=== PATIENT | female | born 1975 | race Caucasian/White ===

== ENCOUNTER 2016-08-21 10:45 | Emergency (ER) | payer MEDICARE, MEDICAID ==
[~2016-08-21] VITALS: Ht 165.1 cm; Wt 97.1 kg
[~2016-08-21 10:45] MED LIST: CLONAZAPAM PO; FLUO10CA13 PO; LEVE250T28 PO; OMEP-110 PO; fentanyl patch TD
[2016-08-21] MEDS ORDERED: ONDANSETRON 2MG/ML, 2ML IVPush ONE (11:30)
[2016-08-21] MEDS ORDERED: MAALOX/HYOSCYAMINE/LIDOCAINE 45 ML BOTTLE PO ONE (11:30)
[2016-08-21] MEDS ORDERED: PANTOPRAZOLE 40 MG IV IVPush ONE (11:30)
[2016-08-21] MEDS ORDERED: SODIUM CHLORIDE FLUSH 10ML SYR IVF ONE (11:30)
[2016-08-21] MEDS ORDERED: MAALOX/HYOSCYAMINE/LIDOCAINE 45 ML BOTTLE ONE (11:33)
[2016-08-21] MEDS ORDERED: PANTOPRAZOLE 40 MG IV ONE (11:33)
[2016-08-21] MEDS ORDERED: HYDROmorphone 1 MG/ML, 1ML ONE ×3 (11:33→14:38)
[2016-08-21] MEDS ORDERED: ONDANSETRON 2MG/ML, 2ML ONE (11:33)
[2016-08-21] MEDS: HYDROmorphone 2 MG/ML, 1ML IVPush PRN ×2 (11:37→13:20)
[2016-08-21 11:59] LABS: HEMOGLOBIN 14.7 g/dL (11.7-16.4)
[2016-08-21] MEDS ORDERED: SODIUM CHLORIDE 0.9% 1,000ML IVBOLUS ONE (12:00)
[2016-08-21 12:12] LABS: ASPARTATE AMINO TRANSFERASE 10 U/L (15-37); BLOOD UREA NITROGEN 17 mg/dL (7-18)
[2016-08-21] MEDS ORDERED: HYDROmorphone 2 MG/ML, 1ML IVPush PRN (14:30)
[2016-08-21 15:09] VITALS: BP 99/65
[2016-08-21] MEDS ORDERED: OMNIPAQUE 350 MG/ML, 100ML BOTTLE ONE (16:33)
== END 2016-08-21 15:16 | disposition home or self-care (01) ==
LOC: ED 13:00
DX: K92.2 Gastrointestinal hemorrhage, unspecified (principal); R10.13 Epigastric pain; R11.2 Nausea with vomiting, unspecified; G40.909 Epilepsy, unspecified, not intractable, without status epilepticus; Z88.0 Allergy status to penicillin
CPT/HCPCS: 36415; 74177; 80053; 83690; 85025; 85610; 85730; 86677; 96361; 96374; 96375; 96376; 99285; C9113; J1170; J2405; J7030; Q9967

== ENCOUNTER 2020-07-16 10:59 | Emergency (ER) | payer MEDICAID, MEDICARE ==
[~2020-07-16] VITALS: Ht 165.1 cm; Wt 103.1 kg
[~2020-07-16 10:59] MED LIST changes: +LITH150C PO
[2020-07-16] MEDS ORDERED: ASPIRIN 81 MG TABLET CHEW PO ONE (11:30)
[2020-07-16 12:01] LABS: ALANINE AMINOTRANSFERASE 22 U/L (12-78); ALBUMIN 3.7 g/dL (3.4-5.0); ANION GAP 8 mmol/L (5-15); BASOPHILS % (AUTO) 1 % (0-1); CALCIUM 8.9 mg/dL (8.5-10.1); CHLORIDE 110 mmol/L (98-107); EOSINOPHILS % (AUTO) 5 % (1-7); LYMPHOCYTES % (AUTO) 29 % (22-44); MEAN CORPUSCULAR HEMOGLOBIN 31.4 pg (27.0-34.8); MEAN PLATELET VOLUME 6.7 fL (7.4-10.4); MONOCYTES % (AUTO) 9 % (2-9); NEUTROPHILS % (AUTO) 56 % (42-75); PLATELET COUNT 291 x10^3/uL (130-400); RED BLOOD COUNT 4.48 x10^6/uL (3.82-5.3); RED CELL DISTRIBUTION WIDTH 13.2 % (9.6-15.2)
[2020-07-16 12:03] LABS: MD NO
[2020-07-16 12:05] LABS: ALKALINE PHOSPHATASE 68 U/L (45-117); BILIRUBIN,TOTAL 0.3 mg/dL (0.2-1.0); TOTAL PROTEIN 7.3 g/dL (6.4-8.2); TROPONIN I < 0.015 ng/mL (0.000-0.045)
[2020-07-16] MEDS ORDERED: ASPIRIN 81 MG TABLET CHEW ONE (12:11)
--- NOTE | 2020-07-16 12:50 | NUR ---
PT AMBULATES BACK TO ROOM AT THIS TIME. PER PT SHE HAS HAD LEFT-SIDED CHEST PAIN SINCE 0600. DENIES PAIN RADIATING, DENIES SOB, BUT "HURTS TO BREATHE IN DEEPLY." RIGHT HAND IS TINGLING, PATIENT DENIES N/V. PT RESTING IN [facility], MONITORING IN PLACE, NADN AT THIS TIME, ELIZABET. AT BEDSIDE.
[2020-07-16] MEDS ORDERED: SODIUM CHLORIDE 0.9% 1,000ML IVBOLUS ONE (13:00)
[2020-07-16] MEDS ORDERED: SODIUM CHLORIDE FLUSH 10ML SYR IVF ONE (13:00)
[2020-07-16] MEDS ORDERED: KETOROLAC 30 MG/1 ML ONE (13:59)
[2020-07-16] MEDS ORDERED: KETOROLAC 30 MG/1 ML IVPush ONE (14:00)
--- NOTE | 2020-07-16 14:20 | NUR ---
MD CHEN AT TO UPDATE PT ON POC.
[2020-07-16 15:13] VITALS: BP 119/74
--- NOTE | 2020-07-16 15:13 | NUR ---
report received from Amy SILVER, pt care transferred at this time.
--- NOTE | 2020-07-16 15:18 | NUR ---
pt resting on gurney, provided warm blanket for comfort, nad, bed in lowest, call light on lap, rails engaged, wctm. waiting for fluids to finish then dc.
--- NOTE | 2020-07-16 15:18 | NUR ---
REPORT GIVEN TO NADEEM RONQUILLO.
--- NOTE | 2020-07-16 15:51 | NUR ---
Patient given discharge instructions and they have confirmed that they understand the instructions. Patient ambulatory with steady gait. nad, denies additional questions or needs, no personal belongings left in room after dc.
== END 2020-07-16 15:52 | disposition home or self-care (01) ==
LOC: ED 14:21
DX: R07.89 Other chest pain (principal); R19.7 Diarrhea, unspecified; R00.0 Tachycardia, unspecified; G40.909 Epilepsy, unspecified, not intractable, without status epilepticus; F17.200 Nicotine dependence, unspecified, uncomplicated; Z90.49 Acquired absence of other specified parts of digestive tract
CPT/HCPCS: 36415; 71045; 80053; 84484; 85025; 85379; 93005; 96360; 96361; 99285; J7030

== ENCOUNTER 2020-08-03 07:25 | Emergency (ER) | payer MEDICAID ==
[~2020-08-03] VITALS: Ht 165.1 cm; Wt 99.3 kg
--- NOTE | 2020-08-03 08:09 | NUR ---
TO TEJAL FROM LOBBY
[2020-08-03] MEDS ORDERED: ONDANSETRON 2MG/ML, 2ML IVPush ONE (08:30)
[2020-08-03] MEDS ORDERED: FAMOTIDINE 20 MG/2 ML IVPush ONE (08:30)
[2020-08-03] MEDS ORDERED: SODIUM CHLORIDE FLUSH 10ML SYR IVF ONE (08:30)
[2020-08-03] MEDS ORDERED: MAALOX/HYOSCYAMINE/LIDOCAINE 45 ML BTL PO ONE (08:30)
[2020-08-03] MEDS ORDERED: MAALOX/HYOSCYAMINE/LIDOCAINE 45 ML BTL ONE (08:54)
--- NOTE | 2020-08-03 08:58 | NUR ---
US at bedside
[2020-08-03 09:18] LABS: MICROSCOPIC INDICATED
--- NOTE | 2020-08-03 09:45 | NUR ---
pt here c/o diffuse abd pain that started yesterday. pt reports that she has been having hematemesis as well today. pt is A&O x4, very anxious and restless, but cooperative. no family at bedside. pt has been medicated but reports minimal pain reduction as she has had a bedside US andstates that it hurt to have the US completed. lab has been to bedside for additional lab draw Krystina CAMARGO at bedside for recheck. pt to have meds changed to PO. pt updated on POC
[2020-08-03] MEDS ORDERED: FAMOTIDINE 20 MG TABLET PO ONE (10:00)
[2020-08-03] MEDS ORDERED: ONDANSETRON ODT 4 MG PO ONE (10:00)
[2020-08-03] MEDS ORDERED: ONDANSETRON ODT 4 MG ONE (10:03)
[2020-08-03] MEDS ORDERED: FAMOTIDINE 20 MG TABLET ONE (10:03)
[2020-08-03 10:09] LABS: BASOPHILS % (AUTO) 0 % (0-1); EOSINOPHILS % (AUTO) 0 % (1-7); LYMPHOCYTES % (AUTO) 9 % (22-44); MEAN CORPUSCULAR HEMOGLOBIN 31.1 pg (27.0-34.8); MEAN CORPUSCULAR HGB CONC 33.8 g/dL (32.4-35.8); MONOCYTES % (AUTO) 4 % (2-9); NEUTROPHILS % (AUTO) 87 % (42-75); PLATELET COUNT 385 x10^3/uL (130-400); RED BLOOD COUNT 4.63 x10^6/uL (3.82-5.3); RED CELL DISTRIBUTION WIDTH 13.7 % (9.6-15.2)
[2020-08-03 10:11] LABS: MD NO
[2020-08-03 10:12] LABS: ALBUMIN 4.5 g/dL (3.4-5.0); ANION GAP 9 mmol/L (5-15); CALCIUM 9.2 mg/dL (8.5-10.1); CHLORIDE 112 mmol/L (98-107)
[2020-08-03 10:18] LABS: ALANINE AMINOTRANSFERASE 20 U/L (12-78); ALKALINE PHOSPHATASE 66 U/L (45-117); BILIRUBIN,TOTAL 0.2 mg/dL (0.2-1.0); CREATININE 1.01 mg/dL (0.55-1.02); TOTAL PROTEIN 8.2 g/dL (6.4-8.2)
--- NOTE | 2020-08-03 10:51 | NUR ---
this pt was D/C by another RN
[2020-08-03 10:55] VITALS: BP 133/78
== END 2020-08-03 10:57 | disposition home or self-care (01) ==
LOC: ED 08:17
DX: K29.00 Acute gastritis without bleeding (principal); N39.0 Urinary tract infection, site not specified; R10.13 Epigastric pain; G40.909 Epilepsy, unspecified, not intractable, without status epilepticus; F17.210 Nicotine dependence, cigarettes, uncomplicated; Z90.49 Acquired absence of other specified parts of digestive tract
CPT/HCPCS: 36415; 76700; 80053; 81001; 83690; 84702; 85025; 87086; 99284; Q0162

== ENCOUNTER 2020-08-27 09:32 | Emergency (ER) | payer MEDICARE, MEDICAID ==
[~2020-08-27] VITALS: Ht 165.1 cm; Wt 104.0 kg
--- NOTE | 2020-08-27 09:52 | NUR ---
this is a 45 yr old female who states she began having upper left chest pain last night. pt states the pain gets worse when she moves her left arm and the pain is reproducable upon lght touch and any arm movement. pt can not identify any exact cause for the injury. pt placed on nibp and o2 monitoring and in bed.
--- NOTE | 2020-08-27 10:05 | NUR ---
REPORT FROM LYNDA. ERP IN TO SEE PT.
[2020-08-27] MEDS ORDERED: KETOROLAC 30 MG/1 ML IM ONE (10:30)
[2020-08-27 10:36] LABS: BASOPHILS % (AUTO) 1 % (0-1); EOSINOPHILS % (AUTO) 5 % (1-7); LYMPHOCYTES % (AUTO) 36 % (22-44); MEAN CORPUSCULAR HEMOGLOBIN 31.7 pg (27.0-34.8); MEAN CORPUSCULAR HGB CONC 33.6 g/dL (32.4-35.8); MEAN PLATELET VOLUME 6.4 fL (7.4-10.4); MONOCYTES % (AUTO) 8 % (2-9); NEUTROPHILS % (AUTO) 49 % (42-75); PLATELET COUNT 331 x10^3/uL (130-400); RED BLOOD COUNT 4.09 x10^6/uL (3.82-5.3); RED CELL DISTRIBUTION WIDTH 14.2 % (9.6-15.2)
[2020-08-27 10:39] LABS: MD NO
[2020-08-27 10:46] LABS: ALBUMIN 3.6 g/dL (3.4-5.0); ANION GAP 5 mmol/L (5-15); CALCIUM 8.6 mg/dL (8.5-10.1); CHLORIDE 108 mmol/L (98-107); CREATININE 0.75 mg/dL (0.55-1.02)
[2020-08-27 10:50] LABS: TROPONIN I < 0.015 ng/mL (0.000-0.045)
[2020-08-27] MEDS ORDERED: KETOROLAC 30 MG/1 ML ONE (10:54)
[2020-08-27 11:35] VITALS: BP 128/68
== END 2020-08-27 11:39 | disposition home or self-care (01) ==
LOC: ED 10:14
DX: R07.89 Other chest pain (principal); R94.31 Abnormal electrocardiogram [ECG] [EKG]; R20.0 Anesthesia of skin
CPT/HCPCS: 36415; 71045; 80048; 82040; 84484; 85025; 93005; 96372; 99285; J1885

== ENCOUNTER 2020-12-14 07:52 | Emergency (ER) | payer MEDICAID, MEDICARE ==
[~2020-12-14] VITALS: Ht 165.1 cm; Wt 100.3 kg
[2020-12-14 09:27] LABS: ALANINE AMINOTRANSFERASE 25 U/L (12-78); ALBUMIN 4.4 g/dL (3.4-5.0); ANION GAP 4 mmol/L (5-15); CALCIUM 9.8 mg/dL (8.5-10.1); CHLORIDE 112 mmol/L (98-107)
[2020-12-14 09:30] LABS: ALKALINE PHOSPHATASE 62 U/L (45-117); BILIRUBIN,TOTAL 0.4 mg/dL (0.2-1.0); CREATININE 1.04 mg/dL (0.55-1.02); TOTAL PROTEIN 8.4 g/dL (6.4-8.2)
--- NOTE | 2020-12-14 09:36 | NUR ---
Requested urine/sent. Pt changing to gown, c/o epigastric pain. AIDET provided.
--- NOTE | 2020-12-14 09:37 | NUR ---
Pt had abd xray and labs from triage already. Dr Baca at bedside.
[2020-12-14 09:46] LABS: BASOPHILS % (AUTO) 0 % (0-1); EOSINOPHILS % (AUTO) 0 % (1-7); LYMPHOCYTES % (AUTO) 16 % (22-44); MEAN CORPUSCULAR HGB CONC 34.2 g/dL (32.4-35.8); MEAN PLATELET VOLUME 6.9 fL (7.4-10.4); MONOCYTES % (AUTO) 5 % (2-9); NEUTROPHILS % (AUTO) 79 % (42-75); PLATELET COUNT 412 x10^3/uL (130-400); RED BLOOD COUNT 4.73 x10^6/uL (3.82-5.3); RED CELL DISTRIBUTION WIDTH 13.5 % (9.6-15.2)
[2020-12-14] MEDS ORDERED: MAALOX/HYOSCYAMINE/LIDOCAINE 45 ML BTL ONE (09:48)
[2020-12-14] MEDS ORDERED: ONDANSETRON 2MG/ML, 2ML ONE (09:52)
--- NOTE | 2020-12-14 09:58 | NUR ---
1st contact c pt. resting on cart, given gi cocktail, states mild relief. aware of plan for iv & zofran.
[2020-12-14] MEDS ORDERED: SODIUM CHLORIDE FLUSH 10ML SYR IVF ONE (10:00)
[2020-12-14] MEDS ORDERED: SODIUM CHLORIDE 0.9% 1,000ML IVBOLUS ONE (10:00)
[2020-12-14] MEDS ORDERED: MAALOX/HYOSCYAMINE/LIDOCAINE 45 ML BTL PO ONE (10:00)
[2020-12-14] MEDS ORDERED: ONDANSETRON 2MG/ML, 2ML IVPush ONE (10:00)
[2020-12-14 10:02] LABS: MICROSCOPIC INDICATED
[2020-12-14] MEDS ORDERED: KETOROLAC 30 MG/1 ML ONE (10:05)
[2020-12-14] MEDS ORDERED: KETOROLAC 30 MG/1 ML IM ONE (10:30)
--- NOTE | 2020-12-14 10:39 | NUR ---
pt resting on cart c eyes closed, rr even non labored. appears in less distress. states "im just so tired"
--- NOTE | 2020-12-14 11:13 | NUR ---
pt to ct at this time.
[2020-12-14] MEDS ORDERED: OMNIPAQUE 350 MG/ML, 100ML BOTTLE ONE (11:30)
[2020-12-14 12:56] VITALS: BP 142/88
== END 2020-12-14 12:58 | disposition home or self-care (01) ==
LOC: ED 08:00
DX: R10.13 Epigastric pain (principal); R11.2 Nausea with vomiting, unspecified; R19.7 Diarrhea, unspecified; G40.909 Epilepsy, unspecified, not intractable, without status epilepticus; F17.200 Nicotine dependence, unspecified, uncomplicated; Z90.49 Acquired absence of other specified parts of digestive tract
CPT/HCPCS: 36415; 74022; 74177; 80053; 81001; 83690; 84703; 85025; 93005; 96361; 96372; 96374; 99285; J1885; J2405; J7030; Q9967